=== PATIENT | female | born 1950 | race Caucasian/White ===

== ENCOUNTER 2018-08-10 08:10 | Day surgery (SDC) | payer MEDICARE, OTHER ==
[2018-08-10] MEDS ORDERED: fentaNYL 100 MCG/2 ML SDV ONE (08:40)
[2018-08-10] MEDS ORDERED: Midazolam 1 MG/ML 2 ML SDV ONE (08:40)
[2018-08-10] MEDS ORDERED: Propofol 200 MG/20 ML SDV ONE ×2 (08:40→10:15)
[2018-08-10] MEDS ORDERED: Lactated Ringers 1,000 ML IV SCH (09:00)
--- NOTE | 2018-08-10 15:13 | OR ---
DATE OF PROCEDURE: 08/10/2018 PREOPERATIVE DIAGNOSIS: Colon cancer screening. POSTOPERATIVE DIAGNOSIS: Diverticulosis. PROCEDURE: Colonoscopy to the cecum. ANESTHESIA: IV anesthesia with monitored anesthesia care. INDICATION: This 68-year-old white female is referred for a colonoscopy for colon cancer screening. She says her last colonoscopic exam was done about 10 years ago. I counseled her for the procedure including the risks and alternatives and she gave her informed consent to proceed. PROCEDURE IN DETAIL: The patient was placed in the left lateral decubitus position. IV anesthesia was administered by the Anesthesia Service. Time-out was held. A rectal exam was performed which was unremarkable. The flexible video Olympus colonoscope was introduced through her anus, up her rectum, and out into her colon. We encountered some diverticula in the sigmoid which we attempted to photograph, but the scope would not work. We removed the scope and obtained a new one because we had just started. The new scope was introduced through her anus, up her rectum, and out her colon, all the way to the cecum. En route, we did see diverticula and obtained a photograph. Once the cecum was reached, the scope was slowly withdrawn examining the mucosa throughout. No mucosal abnormalities were noted other than the diverticula. The scope was retroflexed in the rectum with the distal rectum appearing unremarkable. The scope was straightened and removed. She tolerated the procedure well. Lester Walton MD /[id number]
== END 2018-08-10 11:35 | disposition home or self-care (01) ==
LOC: JP.SDS 08:10
PROVIDERS: ATTEND Surgery
DX: Z12.11 Encounter for screening for malignant neoplasm of colon (principal); K57.30 Diverticulosis of large intestine without perforation or abscess without bleeding; I10 Essential (primary) hypertension; K21.9 Gastro-esophageal reflux disease without esophagitis; E78.5 Hyperlipidemia, unspecified
CPT/HCPCS: 45378; J2250; J2704; J3010; J7120

== ENCOUNTER 2022-04-10 19:52 | Emergency (ER) | payer MEDICARE ==
[2022-04-10] MEDS ORDERED: methylPREDNISolone Sodium Succinate 125 MG/2 ML SDV IM ONE (20:10)
[2022-04-10] MEDS ORDERED: diphenhydrAMINE 25 MG Cap PO ONE (20:10)
== END 2022-04-10 21:28 | disposition home or self-care (01) ==
LOC: JP.ED 19:52
DX: T78.3XXA Angioneurotic edema, initial encounter (principal); E03.9 Hypothyroidism, unspecified; I10 Essential (primary) hypertension; E66.9 Obesity, unspecified; Z68.34 Body mass index [BMI] 34.0-34.9, adult; Z79.82 Long term (current) use of aspirin; Z79.899 Other long term (current) drug therapy
CPT/HCPCS: 96372; 99283; A9270; J2930

== ENCOUNTER 2023-01-20 07:38 | Day surgery (SDC) | payer MEDICARE ==
[~2023-01-20 07:38] MED LIST: Bupivacaine 0.5% 50 ML MDV ONE; Lidocaine 1% with EPINEPHrine 1:100,000 50 ML MDV ONE
[2023-01-20] MEDS ORDERED: Celecoxib 200 MG Cap PO ONE (08:00)
[2023-01-20 08:15] LABS: HEMATOCRIT 36.5 % (34.3-46.0); HEMOGLOBIN 12.5 g/dL (11.2-15.5); MEAN CORPUSCULAR HEMOGLOBIN 32.2 pg (31.6-35.5); MEAN CORPUSCULAR HGB CONC 34.2 g/dL (31.6-35.5); MEAN CORPUSCULAR VOLUME 94.1 fL (81.4-99.0); RED BLOOD CELL COUNT 3.88 M/uL (3.77-5.24); WHITE BLOOD CELL COUNT,WBC 6.8 K/uL (3.2-11.0)
[2023-01-20] MEDS ORDERED: fentaNYL 250 MCG/5 ML SDV ONE (08:21)
[2023-01-20] MEDS ORDERED: Rocuronium 50 MG/5 ML Vial ONE (08:21)
[2023-01-20] MEDS ORDERED: Dexamethasone 4 MG/ML SDV ONE (08:21)
[2023-01-20] MEDS ORDERED: Glycopyrrolate 0.2 MG/ML 5 ML MDV ONE (08:21)
[2023-01-20] MEDS ORDERED: Ondansetron 4 MG/2 ML SDV ONE (08:21)
[2023-01-20] MEDS ORDERED: Neostigmine Methylsulfate 1 MG/ML 5 ML Syringe ONE (08:21)
[2023-01-20] MEDS ORDERED: Propofol 200 MG/20 ML SDV ONE (08:21)
[2023-01-20] MEDS ORDERED: Dextrose 5%-Lactated Ringers 1,000 ML IV SCH (08:30)
[2023-01-20] MEDS ORDERED: ceFAZolin 2 GM in Premix Bag 1 BAG IV ONE (08:30)
[2023-01-20] MEDS ORDERED: Meropenem 500 MG SDV ONE (08:36)
[2023-01-20 08:48] LABS: A/G RATIO 0.9 (1.2-2.2); ALANINE AMINOTRANSFERASE,ALT 17 U/L (12-78); ALBUMIN 3.2 g/dL (3.4-5.0); ALKALINE PHOSPHATASE 99 U/L (46-116); ASPARTATE AMNIOTRANSFERASE,AST 17 U/L (15-37); BILIRUBIN TOTAL 0.4 mg/dL (0.2-1.0); BLOOD UREA NITROGEN,BUN 12 mg/dL (7-18); CALCIUM 8.8 mg/dL (8.5-10.1); CARBON DIOXIDE,CO2 29 mmol/L (21-32); CHLORIDE,CL 101 mmol/L (100-108); CREATININE 0.7 mg/dL (0.6-1.0); EST CRCL DRUG DOSING (CG) 59.21 mL/min; ESTIMATED GFR 91 mL/min (>60); GLUCOSE RANDOM 106 mg/dL (74-106); POTASSIUM,K 3.9 mmol/L (3.6-5.2); PROTEIN TOTAL,TP 6.8 g/dL (6.4-8.2); SODIUM,NA 137 mmol/L (140-148); TSH ULTRASENSITIVE 6.942 uIU/mL (0.358-3.740)
[2023-01-20 08:54] LABS: ANION GAP 10.9 mmol/L (5.0-14.0)
[2023-01-20] MEDS ORDERED: Linezolid 600 MG/300 ML Premix Bag IRR ONE (10:30)
== END 2023-01-20 12:55 | disposition home or self-care (01) ==
LOC: JP.SDS 07:38
PROVIDERS: ATTEND Surgery
DX: N99.840 Postprocedural hematoma of a genitourinary system organ or structure following a genitourinary system procedure (principal); C79.89 Secondary malignant neoplasm of other specified sites; C54.1 Malignant neoplasm of endometrium; K43.0 Incisional hernia with obstruction, without gangrene; E78.00 Pure hypercholesterolemia, unspecified; K21.9 Gastro-esophageal reflux disease without esophagitis; E89.0 Postprocedural hypothyroidism; I10 Essential (primary) hypertension; I87.2 Venous insufficiency (chronic) (peripheral); M19.09 Primary osteoarthritis, other specified site; Z79.899 Other long term (current) drug therapy; Z79.890 Hormone replacement therapy; Z88.8 Allergy status to other drugs, medicaments and biological substances; Z91.041 Radiographic dye allergy status; Z90.710 Acquired absence of both cervix and uterus
CPT/HCPCS: 22901; 36415; 49594; 80053; 84443; 85027; 87070; 87075; 87205; 88307; 88341; 88342; 88360; A9270; J0131; J0690; J1100; J2020; J2405; J2704; J2710; J3010; J3490; J7121; J2185

== ENCOUNTER 2023-03-11 08:41 | Inpatient (IN) | payer MEDICARE ==
[~2023-03-11 08:41] MED LIST changes: +Meropenem 500 MG SDV ONE
[2023-03-11] MEDS ORDERED: diphenhydrAMINE 50 MG/ML SDV IVPUSH PRN ×2 (08:58→15:00)
[2023-03-11] MEDS ORDERED: HYDROmorphone/Normal Saline 6 MG/30 ML PCA Vial IV PRN (08:58)
[2023-03-11] MEDS ORDERED: Ondansetron 4 MG/2 ML SDV IVPUSH PRN ×2 (08:58→15:00)
[2023-03-11] MEDS ORDERED: Naloxone 0.4 MG/ML SDV IVPUSH PRN (08:58)
[2023-03-11] MEDS ORDERED: diphenhydrAMINE 25 MG Cap PO PRN (08:58)
[2023-03-11] MEDS ORDERED: Dextrose 5%-Lactated Ringers 1,000 ML IV SCH (09:15)
[2023-03-11] MEDS ORDERED: Scopolamine 1.5 MG Transdermal Patch TOP SCH (09:15)
[2023-03-11] MEDS ORDERED: Naloxone 0.4 MG/ML SDV IV PRN (10:00)
[2023-03-11] MEDS ORDERED: ceFAZolin 2 GM in Premix Bag 1 BAG IV ONE (10:15)
[2023-03-11] MEDS ORDERED: Ketamine 500 MG/5 ML MDV IV SCH (10:30)
[2023-03-11] MEDS ORDERED: Ketamine 16 MG in Sodium Chloride 0.9% 19.84 ML IV SCH (10:30)
[2023-03-11] MEDS ORDERED: fentaNYL 250 MCG/5 ML SDV ONE ×2 (11:30→12:15)
[2023-03-11] MEDS ORDERED: Ondansetron 4 MG/2 ML SDV ONE (11:31)
[2023-03-11] MEDS ORDERED: Dexamethasone 4 MG/ML SDV ONE (11:31)
[2023-03-11] MEDS ORDERED: Propofol 200 MG/20 ML SDV ONE (11:31)
[2023-03-11] MEDS ORDERED: Neostigmine Methylsulfate 1 MG/ML 5 ML Syringe ONE (11:31)
[2023-03-11] MEDS ORDERED: Glycopyrrolate 0.2 MG/ML 5 ML MDV ONE (11:31)
[2023-03-11] MEDS ORDERED: Succinylcholine 200 MG/10 ML MDV ONE (11:31)
[2023-03-11] MEDS ORDERED: Rocuronium 50 MG/5 ML Vial ONE (11:31)
[2023-03-11] MEDS ORDERED: Meropenem 500 MG SDV ONE (12:00)
[2023-03-11] MEDS ORDERED: Linezolid 600 MG/300 ML Premix Bag IRR ONE (12:09)
[2023-03-11] MEDS ORDERED: Labetalol 20 MG/4 ML Syringe ONE (12:36)
[2023-03-11] MEDS ORDERED: hydrALAZINE 20 MG/ML SDV ONE (13:19)
[2023-03-11] MEDS ORDERED: Sugammadex Sodium 200 MG/2 ML VIAL ONE (13:36)
[2023-03-11] MEDS ORDERED: Cyclobenzaprine 10 MG Tab PO PRN (14:55)
[2023-03-11] MEDS ORDERED: ceFAZolin 2 GM in Premix Bag 1 BAG IV SCH (15:00)
[2023-03-11] MEDS ORDERED: hydrOXYzine HCL 100 MG/2 ML SDV IM PRN (15:00)
[2023-03-11] MEDS ORDERED: Labetalol 20 MG/4 ML Syringe IVPUSH PRN (15:00)
[2023-03-11] MEDS ORDERED: Metoclopramide 10 MG/2 ML SDV IVPUSH PRN (15:00)
[2023-03-11] MEDS ORDERED: Pantoprazole 40 MG Vial IVPUSH SCH (16:00)
[2023-03-11] MEDS: SCOPOLAMINE PATCH CHECK TOP SCH (17:04)
[2023-03-11] MEDS ORDERED: MVI, Adult with Vitamin K 10 ML, Thiamine 200 MG, Zinc/Copper/Manganese/Selenium 1 ML i... IV SCH ×4 (18:00)
[2023-03-11] MEDS: ceFAZolin 2 GM in Premix Bag 1 BAG IV SCH (19:45)
[2023-03-11] MEDS ORDERED: Acetaminophen 500 MG Tab PO PRN (20:00)
[2023-03-11] MEDS: traZODone 50 MG Tab PO SCH (21:59)
[2023-03-11] MEDS: Acetaminophen 500 MG Tab PO SCH (21:59)
[2023-03-12] MEDS: Dextrose 5%-Lactated Ringers 1,000 ML IV SCH ×2 (00:19→06:53)
[2023-03-12] MEDS: ceFAZolin 2 GM in Premix Bag 1 BAG IV SCH ×2 (03:42→11:57)
[2023-03-12] MEDS: Acetaminophen 500 MG Tab PO SCH ×3 (05:48→22:09)
[2023-03-12] MEDS ORDERED: Dextrose 5%-Lactated Ringers 1,000 ML IV SCH (07:45)
[2023-03-12] MEDS: Metoprolol Succinate 50 MG Tab.ER PO SCH (08:33)
[2023-03-12] MEDS: Docusate Sodium 100 MG Cap PO SCH ×2 (08:34→22:08)
[2023-03-12] MEDS: Bisacodyl 5 MG Tab PO SCH ×2 (08:34→22:09)
[2023-03-12] MEDS: SCOPOLAMINE PATCH CHECK TOP SCH (08:35)
[2023-03-12] MEDS: Cyclobenzaprine 10 MG Tab PO SCH ×3 (08:35→23:11)
[2023-03-12] MEDS: Celecoxib 200 MG Cap PO SCH ×2 (08:35→22:09)
[2023-03-12] MEDS ORDERED: Pantoprazole 40 MG Tab.CR PO SCH (16:00)
[2023-03-12] MEDS: oxyCODONE 5 MG Tab PO PRN ×2 (17:03→22:13)
[2023-03-12] MEDS ORDERED: MVI, Adult with Vitamin K 10 ML, Thiamine 200 MG, Zinc/Copper/Manganese/Selenium 1 ML i... IV SCH ×4 (18:00)
[2023-03-12] MEDS ORDERED: ceFAZolin 2 GM in Premix Bag 1 BAG IV ONE (20:00)
[2023-03-12] MEDS: traZODone 50 MG Tab PO SCH (22:09)
[2023-03-13 04:47] LABS: HEMATOCRIT 30.9 % (34.3-46.0); HEMOGLOBIN 10.3 g/dL (11.2-15.5); MEAN CORPUSCULAR HEMOGLOBIN 31.2 pg (31.6-35.5); MEAN CORPUSCULAR HGB CONC 33.3 g/dL (31.6-35.5); MEAN CORPUSCULAR VOLUME 93.6 fL (81.4-99.0); RED BLOOD CELL COUNT 3.3 M/uL (3.77-5.24); WHITE BLOOD CELL COUNT,WBC 11.6 K/uL (3.2-11.0)
[2023-03-13 05:16] LABS: A/G RATIO 0.9 (1.2-2.2); ALANINE AMINOTRANSFERASE,ALT 19 U/L (12-78); ALBUMIN 2.5 g/dL (3.4-5.0); ALKALINE PHOSPHATASE 72 U/L (46-116); ASPARTATE AMNIOTRANSFERASE,AST 40 U/L (15-37); BILIRUBIN TOTAL 0.5 mg/dL (0.2-1.0); BLOOD UREA NITROGEN,BUN 11 mg/dL (7-18); CALCIUM 8.3 mg/dL (8.5-10.1); CARBON DIOXIDE,CO2 30 mmol/L (21-32); CHLORIDE,CL 99 mmol/L (100-108); CREATININE 0.7 mg/dL (0.6-1.0); EST CRCL DRUG DOSING (CG) 59.21 mL/min; ESTIMATED GFR 91 mL/min (>60); GLUCOSE RANDOM 94 mg/dL (74-106); MAGNESIUM 1.7 mg/dL (1.8-2.4); PHOSPHORUS 3.6 mg/dL (2.5-4.9); POTASSIUM,K 3.7 mmol/L (3.6-5.2); PROTEIN TOTAL,TP 5.3 g/dL (6.4-8.2); SODIUM,NA 134 mmol/L (140-148)
[2023-03-13 05:19] LABS: ANION GAP 8.7 mmol/L (5.0-14.0)
[2023-03-13] MEDS: Acetaminophen 500 MG Tab PO SCH (06:04)
[2023-03-13] MEDS: oxyCODONE 5 MG Tab PO PRN (06:06)
[2023-03-13] MEDS: Docusate Sodium 100 MG Cap PO SCH (08:01)
[2023-03-13] MEDS: Bisacodyl 5 MG Tab PO SCH (08:01)
[2023-03-13] MEDS: Cyclobenzaprine 10 MG Tab PO SCH (08:01)
[2023-03-13] MEDS: Metoprolol Succinate 50 MG Tab.ER PO SCH (08:02)
[2023-03-13] MEDS: Celecoxib 200 MG Cap PO SCH (08:02)
[2023-03-13] MEDS: SCOPOLAMINE PATCH CHECK TOP SCH (08:02)
== END 2023-03-13 10:04 | disposition home or self-care (01) | DRG 740 ==
LOC: JP.SDS 08:41 → JP.MS 13:50
PROVIDERS: ADMIT Surgery; ATTEND Surgery
PROC: 0U5B0ZZ Destruction of Endometrium, Open Approach (ICD-10-PCS; principal; 2023-03-11)
PROC: 0T9B70Z Drainage of Bladder with Drainage Device, Via Natural or Artificial Opening (ICD-10-PCS; 2023-03-11)
PROC: [UNRECOGNIZED PROCEDURE] (2023-03-11)
DX: C54.1 Malignant neoplasm of endometrium (principal); D69.3 Immune thrombocytopenic purpura; C55 Malignant neoplasm of uterus, part unspecified; I10 Essential (primary) hypertension; E89.0 Postprocedural hypothyroidism; K21.9 Gastro-esophageal reflux disease without esophagitis; D49.2 Neoplasm of unspecified behavior of bone, soft tissue, and skin; Z88.8 Allergy status to other drugs, medicaments and biological substances; Z79.899 Other long term (current) drug therapy; Z86.73 Personal history of transient ischemic attack (TIA), and cerebral infarction without residual deficits
CPT/HCPCS: 22904; 22905; 36415; 86304; 88307; 88342; 88360; A9270; J0131; J0171; J0330; J0360; J0690; J1100 ×2; J1170; J2020; J2185 ×2; J2405; J2704; J2710; J2795; J3010 ×2; J3490 ×4; J7121; 80053; 83735; 84100; 85027; C9113; J3411

== ENCOUNTER 2023-11-11 15:29 | Emergency (ER) | payer MEDICARE ==
[2023-11-11] MEDS: cloNIDine 0.1 MG Tab PO ONE (17:39)
[2023-11-11] MEDS: Enalaprilat 1.25 MG/ML SDV IVPUSH ONE (18:18)
== END 2023-11-11 19:44 | disposition home or self-care (01) ==
LOC: JP.ED 15:29
DX: I16.0 Hypertensive urgency (principal); K21.9 Gastro-esophageal reflux disease without esophagitis; E03.9 Hypothyroidism, unspecified; E66.9 Obesity, unspecified; Z68.34 Body mass index [BMI] 34.0-34.9, adult; Z79.899 Other long term (current) drug therapy; Z90.710 Acquired absence of both cervix and uterus; Z91.041 Radiographic dye allergy status; Z88.8 Allergy status to other drugs, medicaments and biological substances
CPT/HCPCS: 96374; 99283; A9270

== ENCOUNTER 2025-03-18 07:27 | Day surgery (SDC) | payer MEDICARE ==
[~2025-03-18 07:27] MED LIST changes: -Bupivacaine 0.5% 50 ML MDV ONE; +Dexamethasone 4 MG/ML SDV ONE; +Glycopyrrolate 0.2 MG/ML 5 ML MDV ONE; -Lidocaine 1% with EPINEPHrine 1:100,000 50 ML MDV ONE; -Meropenem 500 MG SDV ONE; +Ondansetron 4 MG/2 ML SDV ONE; +Propofol 200 MG/20 ML SDV ONE; +Succinylcholine 200 MG/10 ML MDV ONE; +fentaNYL 250 MCG/5 ML SDV ONE
[2025-03-18] MEDS: Lactated Ringers 1,000 ML IV SCH (08:45)
[2025-03-18] MEDS: metroNIDAZOLE/Normal Saline 500 MG in Premix Bag 1 BAG IV ONE (08:51)
[2025-03-18] MEDS ORDERED: Ketorolac 30 MG/ML SDV ONE (10:23)
[2025-03-18] MEDS ORDERED: fentaNYL 250 MCG/5 ML SDV ONE (10:23)
[2025-03-18] MEDS: Bupivacaine 0.5%/EPINEPHrine 1:200,000 50 ML MDV ONE (10:50)
[2025-03-18] MEDS: Acetaminophen/HYDROcodone 325-5 MG Tab PO PRN (13:06)
== END 2025-03-18 13:43 | disposition home or self-care (01) ==
LOC: JP.SDS 07:27
PROVIDERS: ATTEND Surgery
DX: K43.0 Incisional hernia with obstruction, without gangrene (principal); K43.6 Other and unspecified ventral hernia with obstruction, without gangrene; I10 Essential (primary) hypertension; E03.9 Hypothyroidism, unspecified
CPT/HCPCS: 00790; 49618; A9270; C1713; C1781; J0169; J0330; J0690; J1100; J1596; J1836; J1885; J2405; J2704; J2710; J2795; J3010; J3490; J7120